=== PATIENT | male | born 1975 | race Caucasian/White ===

== ENCOUNTER → 2021-07-27 | Day surgery (SDC) | payer BC ==
[~2021-07-27] VITALS: Ht 172.7 cm; Wt 91.6 kg
[~2021-07-27] MED LIST: GLUCOPHAGE 500500 MG PO; HYDROCODON-ACE1 EAC2 PO; LISINOPRIL10 MG PO
[2021-07-27 07:38] LABS: BUN/CREATININE RATIO 18 (0-10)
== END | disposition home or self-care (01) ==
LOC: OR 06:04
PROVIDERS: Orthopaedic Surgery
DX: G56.02 Carpal tunnel syndrome, left upper limb (principal); I10 Essential (primary) hypertension; E11.9 Type 2 diabetes mellitus without complications; Z88.8 Allergy status to other drugs, medicaments and biological substances; Z79.84 Long term (current) use of oral hypoglycemic drugs; Z79.899 Other long term (current) drug therapy
CPT/HCPCS: 80048; 82962; 83036; 93005; J1100; J1885; J2250; J2405; J2704; J3010; J7030; J7040; J7120